=== PATIENT | female | born 1980 | race Caucasian/White ===

== ENCOUNTER 2019-02-06 17:47 | Inpatient (IN) | payer OTHER ==
[~2019-02-06] VITALS: Ht 152.4 cm; Wt 59.4 kg
[~2019-02-06 17:47] MED LIST: CLONIDINE; DEPAKOTE PO; DEPO PROVERA; MIRALAX PO; NEURONTIN; SEROQUEL PO; SERT25TA PO; TEMAZEPAM; TRAZADONE PO; TYLENOL; VANC750S IV; ZOS3.375I IV
[2019-02-06 17:53] VITALS: BP 81/60
--- NOTE | 2019-02-06 18:22 | NUR ---
PT BIB [facility] FROM [facility] FOR FURTHER EVALUATION; STAFF STATED "PT HAS BEEN BITTING HERSELF FOR APPROX 3 HOURS." UPON ARRIVAL PT WAS NOTED CALM, NO INAPPROPRIATE BEHAVIOR WAS OBSERVED. CONNECTED TO MEDICAL DRIVER; VSS. MED HX-CEREBRAL PALSY, PSYCHOSIS AND SEIZURES. SEIZURE PRECAUTIONS INITIATED; BED CLOSE TO NURSES' STATION, PADDED SIDERAILS, BED LOCKED AND IN LOWEST POSITION. ERMD TO EVALUATE PT. ALLERGIES: CODEINE AND MEPERIDINE.
--- NOTE | 2019-02-06 18:38 | NUR ---
DR LU EVALUATING PT AT BEDSIDE.
[2019-02-06] MEDS ORDERED: HAL5 PO (18:58)
[2019-02-06] MEDS ORDERED: SEROQUEL PO (18:58)
[2019-02-06] MEDS ORDERED: ASCO500T45 PO (18:58)
[2019-02-06] MEDS ORDERED: MAG OXIDE PO (18:58)
[2019-02-06] MEDS ORDERED: COLACE PO (18:58)
[2019-02-06] MEDS ORDERED: GABAPENTIN PO (18:58)
[2019-02-06] MEDS ORDERED: METO25TA PO (18:58)
[2019-02-06] MEDS ORDERED: GEODON PO (18:58)
[2019-02-06 19:07] LABS: BASOPHILS % (AUTO) 0.7 % (0.0-2.0); EOSINOPHILS # (AUTO) 0.2 K/uL (0-0.4); EOSINOPHILS % (AUTO) 3.7 % (0.0-4.0); HEMATOCRIT 38.9 % (36-48); HEMOGLOBIN 12.6 g/dL (12.0-16.0); LYMPHOCYTES # (AUTO) 2.6 K/uL (2.5-16.5); MEAN CORPUSCULAR HEMOGLOBIN 34 pg (27-31); MEAN CORPUSCULAR HGB CONC 32 g/dL (33-37); MEAN CORPUSCULAR VOLUME 103.9 fL (80-94); MONOCYTES # (AUTO) 0.7 K/uL (0.8-1.0); MONOCYTES % (AUTO) 11.5 % (1.7-9.3); NEUTROPHILS # (AUTO) 2.8 K/uL (1.8-7.7); NEUTROPHILS % (AUTO) 44.1 % (42.2-75.2); PLATELET COUNT (AUTO) 403 K/uL (140-450); RED BLOOD CELL COUNT(AUTO) 3.75 MIL/uL (4.20-5.40); RED CELL DISTRIBUTION WIDTH 18.1 % (11.6-13.7); WHITE BLOOD COUNT (AUTO) 6.5 K/uL (4.8-10.8)
--- NOTE | 2019-02-06 19:12 | NUR ---
RECEIVED REPORT FROM BARRERA CROW. TRANSFER OF CARE AT THIS TIME.
--- NOTE | 2019-02-06 19:18 | NUR ---
REPORT GIVEN TO BARRERA TATUM. TRANSFER OF CARE AT THIS TIME.
[2019-02-06 19:23] LABS: ANION GAP 14.9 (8-16); CARBON DIOXIDE 25.8 mmol/L (21-32); CHLORIDE 107 mmol/L (98-107); CREATININE 0.9 mg/dL (0.6-1.3); GFR ARICAN-AMERICAN 89 mL/min (>90); GLUCOSE 93 mg/dL (74-106); POTASSIUM 3.7 mmol/L (3.5-5.1); SODIUM SERUM 144 mmol/L (136-145); UREA NITROGEN, BLOOD 23 mg/dL (7-18)
[2019-02-06 19:29] LABS: ASPARTATE AMINOTRANSFERASE 24 U/L (15-37); TOTAL BILIRUBIN 0.5 mg/dL (0.0-1.0)
[2019-02-06 19:41] LABS: ACETAMINOPHEN < 0.5 ug/ml (10-30); SALICYLATE < 2.8 mg/dL (2.8-20.0)
--- NOTE | 2019-02-06 19:45 | NUR ---
# 14 FR straight catheter utilizing sterile technique. Immediate return of 50 ml dark yellow urine noted. Urine sample collected and sent to lab. Pt tolerated procedure well. Addendum: 02/06/19 at 2049 by [employer] PT TOLERATED WELL; NO AGGRESSION OR COMBATIVE BEHAVIOR AT THIS TIME.
--- NOTE | 2019-02-06 20:30 | NUR ---
PT AWAKE, ALERT, SITTING IN BED WITH PADDED SIDE RAILS UP X 2. PT IS CALM; NO AGGRESSION OR COMBATIVE BEHAVIOR AT THIS TIME.
[2019-02-06 21:01] LABS: BARBITURATE, URINE NEG. ng/ml (NEG <=200); BENZODIAZEPINE, URINE NEG. ng/mL (NEG <=200); CANNABINOID, URINE NEG. ng/mL (NEG <=50); COCAINE, URINE NEG. ng/mL (NEG <=300); OPIATE, URINE NEG. ng/mL (NEG <=2000); PHENCYCLIDINE SCREEN,URINE NEG. ng/mL (NEG <=25)
--- NOTE | 2019-02-06 21:30 | NUR ---
PT AWAKE, ALERT, SITTING IN BED WITH PADDED SIDE RAILS UP X 2. PT IS CALM; NO AGGRESSION OR COMBATIVE BEHAVIOR AT THIS TIME.
--- NOTE | 2019-02-06 22:30 | NUR ---
PT AWAKE, ALERT, SITTING IN BED WITH PADDED SIDE RAILS UP X 2. PT IS CALM; NO AGGRESSION OR COMBATIVE BEHAVIOR AT THIS TIME.
--- NOTE | 2019-02-06 22:45 | NUR ---
[facility] TRANSPORT AT BEDSIDE
--- NOTE | 2019-02-06 22:50 | NUR ---
PT BECAME AGGRESSIVE AND COMBATIVE DURING ATTEMPTED TRANSFER TO [facility]. PT STARTED KICKING AND BITING HERSELF. [facility] REFUSED TRANSFER. DR. SLADE NOTIFED. NEW ORDERS RECEIVED.
[2019-02-06] MEDS ORDERED: LORazepam 2 MG/ML VIAL IM/IVP ONE (22:55)
--- NOTE | 2019-02-06 22:58 | NUR ---
ATIVAN 1 MG GIVEN IM TO LEFT DELTOID. WILL CONTINUE TO MONITOR.
[2019-02-06] MEDS ORDERED: HALOPERIDOL IM 5 MG/ML VIAL IM ONE (23:10)
--- NOTE | 2019-02-06 23:10 | NUR ---
PT CONTINUES TO BE COMBATIVE AND AGGRESSIVE. PT IS BITING CLOTHES, KICKING, REMOVING SIDE RAIL PADS AND HITTING HEAD AGAINST MATTRESS. DR. SLADE NOTIFIED. NEW ORDERS RECEIVED.
--- NOTE | 2019-02-06 23:12 | NUR ---
HALDOL 5 MG IM GIVEN TO RIGHT DELTOID.
--- NOTE | 2019-02-06 23:25 | NUR ---
Physician order given to place velcro type restraints to wrists and ankles to prevent self-inflicted injury. Resraints placed with quick-release ties to bed frame. Pt under observation.
[2019-02-06 23:49] LABS: APPEARANCE,URINE CLEAR (CLEAR); BILIRUBIN,URINE NEGATIVE (NEGATIVE); BLOOD, URINE NEGATIVE (NEGATIVE); COLOR,URINE YELLOW (YELLOW); LEUKOCYTE ESTERASE ,URINE NEGATIVE (NEGATIVE); NITRITE, URINE NEGATIVE (NEGATIVE); UGLUCOSE NEGATIVE (NEGATIVE)
[2019-02-07 00:25] LABS: RBC,URINE 0-5 /HPF (0-5); URINE AMORPHOUS URATE 3+ /HPF (None Seen); WBC,URINE 0-5 /HPF (0-5)
--- NOTE | 2019-02-07 00:30 | NUR ---
PT CONTINUES TO BE COMBATIVE. ATTEMPTING TO REMOVE HERSELF FROM RESTRAINTS AND BITE HERSELF. CMS IN TACT TO ALL 4 EXTREMETIES.
[2019-02-07] MEDS ORDERED: DOCUSATE SODIUM 100 MG GELCAP PO PRN (01:05)
[2019-02-07] MEDS ORDERED: ACETAMINOPHEN 325 MG TAB PO PRN (01:05)
[2019-02-07] MEDS ORDERED: ONDANSETRON 4 MG/2 ML VIAL IM/IVP PRN (01:05)
--- NOTE | 2019-02-07 01:30 | NUR ---
PT IS RESTLESS; OCCASIONALLY CRIES OUT AND KICKS. PT IS NO LONGER BITING HERSELF OR HITTING HEAD. RESTRAINTS REMOVED. CMS IN TACT TO ALL 4 EXTREMETIES.
[2019-02-07 01:35] VITALS: BP 117/64
--- NOTE | 2019-02-07 01:35 | NUR ---
PT ARRIVED FROM ED VIA GURNEY, RECEIVED REPORT FROM ED NURSE HARSH RN, PT STABLE, NO DISTRESS NOTED, PT HAS NO IV ACCESS AT THIS MOMENT, PT ON ROOM AIR, NO SOB NOTED, PT DROWSY, NON VERBAL, V/S TAKEN, WNL, PT NOT COOPERATIVE, WOULD NOT MOVE OR TURN, TRANSFERRED PT TO BED, TOLERATED WELL, FLACC 0, INITIAL ASSESSMENT DONE, ALL SAFETY PRECAUTION MET, CALL LIGHT WITHIN REACH, WILL CONTINUE TO MONITOR.
[2019-02-07] MEDS ORDERED: HAL5 PO (01:38)
[2019-02-07] MEDS ORDERED: MIRABULK PO (01:39)
[2019-02-07] MEDS ORDERED: KEP500 PO (01:39)
[2019-02-07] MEDS ORDERED: METO25TA PO (01:39)
[2019-02-07] MEDS ORDERED: GABAPENTIN PO (01:39)
[2019-02-07] MEDS ORDERED: SILV-22 TP (01:39)
[2019-02-07] MEDS ORDERED: GEODON PO (01:39)
[2019-02-07] MEDS ORDERED: SERT25TA PO (01:39)
[2019-02-07] MEDS ORDERED: SEROQUEL PO (01:39)
[2019-02-07] MEDS ORDERED: LEVO0.124 PO (01:39)
--- NOTE | 2019-02-07 01:42 | NUR ---
Patient will be admitted to care of Dr. Cabezas. Admited to MS. Will go to room 110B. Belongings list completed. Report to BARRERA Doran.
[2019-02-07] MEDS ORDERED: LACTULOSE 20 GM/30 ML UDC PO ONE (01:50)
[2019-02-07 01:51] LABS: CHOL/HDL RATIO 5.5 (1-4.5); MAGNESIUM 1.8 mg/dL (1.8-2.4); PHOSPHORUS 3.1 mg/dL (2.5-4.9); THYROID STIMULATING HORMONE 0.07 uIU/mL (0.34-3.74)
--- NOTE | 2019-02-07 02:41 | NUR ---
LACTULOSE ORDERED ADMINISTERED, PT DRANK SOME, BUT SPIT SOME OUT, DR. CUENCA NOTIFIED. PT RESTING, NO DISTRESS NOTED, CALL LIGHT WITHIN REACH, WILL CONTINUE TO MONITOR.
--- NOTE | 2019-02-07 02:58 | NUR ---
IV INSERTED TO R FOOT, 22G PATENT, INTACT, PT TOLERATED WELL. SITTER AT BEDSIDE, WILL CONTINUE TO MONITOR.
[2019-02-07] MEDS: NACL 0.9% 1,000 ML IV SCH ×3 (03:11→22:13)
--- NOTE | 2019-02-07 05:53 | NUR ---
PT SLEEPING, NO DISTRESS NOTED, SITTER AT BEDSIDE.
--- NOTE | 2019-02-07 06:18 | NUR ---
PT WOULD NOT COOPERATE TO DO CHEST XRAY, WOULD NOT LET STAFF TOUCH HER. PT RESTING IN BED, NO DISTRESS NOTED, SITTER AT BEDSIDE.
[2019-02-07] MEDS ORDERED: LEVOTHYROXINE 0.112 MG TAB PO SCH (06:30)
[2019-02-07 06:40] LABS: BASOPHILS # (AUTO) 0.1 K/uL (0.00-0.22); BASOPHILS % (AUTO) 0.8 % (0.0-2.0); EOSINOPHILS # (AUTO) 0.3 K/uL (0-0.4); EOSINOPHILS % (AUTO) 3.6 % (0.0-4.0); HEMATOCRIT 39.5 % (36-48); LYMPHOCYTES # (AUTO) 2.2 K/uL (2.5-16.5); LYMPHOCYTES % (AUTO) 25.6 % (20.5-51.1); MEAN CORPUSCULAR HEMOGLOBIN 34 pg (27-31); MEAN CORPUSCULAR HGB CONC 33 g/dL (33-37); MEAN CORPUSCULAR VOLUME 103.4 fL (80-94); MONOCYTES % (AUTO) 11.6 % (1.7-9.3); NEUTROPHILS # (AUTO) 5.1 K/uL (1.8-7.7); NEUTROPHILS % (AUTO) 58.4 % (42.2-75.2); PLATELET COUNT (AUTO) 410 K/uL (140-450); RED BLOOD CELL COUNT(AUTO) 3.81 MIL/uL (4.20-5.40); RED CELL DISTRIBUTION WIDTH 17.8 % (11.6-13.7); WHITE BLOOD COUNT (AUTO) 8.8 K/uL (4.8-10.8)
--- NOTE | 2019-02-07 07:15 | NUR ---
ENDORSED PT TO DAY SHIFT NURSE ABEL RN, PT STABLE, NO DISTRESS NOTED, SITTER AT BEDSIDE.
--- NOTE | 2019-02-07 07:16 | NUR ---
RECEIVED ENDORSEMENT FROM MODERN AND CONTEMPORARY ART CURATOR NURSE LINK. PATIENT IS ASLEEP, NO DISTRESS NOTED. VISIBLE RISE AND FALL OF CHEST. RESPIRATIONS ARE EVEN AND UNLABORED ON ROOM AIR. RIGHT FOOT 22G IV INTACT, PATENT, AND INFUSING IVF. PLAN OF CARE WILL BE REVIEWED WITH PATIENT ONCE SHE IS AWAKE. SAFETY MEASURES IN PLACE, SITTER AT BEDSIDE.
[2019-02-07 07:25] LABS: PROTHROMBIN TIME 10.3 secs (10.8-13.4)
[2019-02-07 07:53] LABS: MAGNESIUM 1.8 mg/dL (1.8-2.4); PHOSPHORUS 4.1 mg/dL (2.5-4.9)
[2019-02-07 08:00] VITALS: BP 126/61
[2019-02-07] MEDS ORDERED: ZIPRASIDONE 40 MG CAP PO SCH (08:00)
[2019-02-07 08:09] LABS: ANION GAP 12.8 (8-16); CARBON DIOXIDE 27.7 mmol/L (21-32); POTASSIUM 3.5 mmol/L (3.5-5.1)
[2019-02-07 08:10] LABS: CREATININE 0.8 mg/dL (0.6-1.3)
[2019-02-07] MEDS: levETIRAcetam 500 MG TAB PO SCH ×2 (08:41→21:00)
[2019-02-07] MEDS: QUEtiapine FUMARATE 100 MG TAB PO SCH ×2 (08:43→21:00)
[2019-02-07] MEDS: MAGNESIUM OXIDE 400 MG TAB PO SCH (08:43)
[2019-02-07] MEDS: DOCUSATE SODIUM 250 MG GELCAP PO SCH (08:43)
[2019-02-07] MEDS: DIVALPROEX 500 MG TABEC PO SCH ×2 (08:44→21:00)
[2019-02-07] MEDS: HALOPERIDOL 5 MG TAB PO SCH ×2 (08:44→21:00)
[2019-02-07] MEDS: GABAPENTIN 100 MG CAP PO SCH ×3 (08:45→17:00)
[2019-02-07] MEDS: SERTRALINE 50 MG TAB PO SCH (08:45)
--- NOTE | 2019-02-07 08:58 | NUR ---
PATIENT HAS BEEN SCREENED AND CATEGORIZED HIGH NUTRITION RISK. PATIENT WILL BE SEEN WITHIN 1-2 DAYS OF ADMISSION. 02/07/19-02/08/[address]
[2019-02-07] MEDS ORDERED: GEODON 20 MG PO SCH (09:00)
[2019-02-07] MEDS: METOPROLOL 25 MG TAB PO SCH ×2 (09:00→21:00)
[2019-02-07] MEDS ORDERED: DEPAKOTE 500 MG PO SCH (09:00)
[2019-02-07] MEDS ORDERED: SILVER SULFADIAZINE TP SCH (09:00)
[2019-02-07] MEDS ORDERED: MAGNESIUM OXIDE 400 MG PO SCH (09:00)
[2019-02-07] MEDS ORDERED: SEROQUEL 400 MG PO SCH (09:00)
[2019-02-07] MEDS ORDERED: NON-FORMULARY ITEM (Levothyroxine Sodium* (Synthroid*) 0.125 MG) PO SCH (09:00)
[2019-02-07] MEDS ORDERED: GABAPENTIN 100 MG PO SCH (09:00)
[2019-02-07] MEDS ORDERED: COLACE PO SCH (09:00)
[2019-02-07] MEDS: POLYETHYLENE GLYCOL 17 GM/PKT PO SCH (09:06)
--- NOTE | 2019-02-07 09:07 | NUR ---
BLOOD PRESSURE MEDICATION NOT GIVEN. PATIENTS BP IS 126/61 WITH HR OF 87. WILL MAKE DR. COLLINS AWARE. PATIENTS CAREGIVER AT BEDSIDE. CAREGIVER STATED THAT PATIENTS PRIMARY DOCTOR, DR. MILNER, WISHES TO SPEAK WITH . CAREGIVER ALSO STATED THAT DR. MILNER REQUESTED PICTURES OF WOUND. DR. VALERIA MILNER NUMBER IS . PER CHARGE NURSE, GREGORIO, OK TO TAKE PICTURES. NO OTHER NEEDS AT THIS TIME, WILL CONTINUE TO MONITOR. Addendum: 02/07/19 at 1008 by Brittanie Damon RN SCHEDULED MEDICATIONS ADMINISTERED WITH APPLE SAUCE. PATIENT ABLE TO SWALLOW WITH NO DIFFICULTY. PATIENT TOLERATED WELL.
[2019-02-07] MEDS: LORazepam 2 MG/ML VIAL IM/IVP PRN ×2 (09:34→23:56)
--- NOTE | 2019-02-07 09:35 | NUR ---
PATIENT OBSERVED BANGING HER HEAD ON RAILS AND HEAD BOARD. PATIENT ALSO BITING STUFFED ANIMAL AND BED SHEETS. ADMINISTERED PRN ATIVAN IVP. PATIENT CALMED DOWN AND IS NOW RESTING IN BED. NO OTHER NEEDS AT THIS TIME, WILL CONTINUE TO MONITOR.
--- NOTE | 2019-02-07 10:20 | NUR ---
WOUND CARE EVALUATION: PT. IS NON-VERBAL, IN BED TURNING SIDE TO SIDE AND IN POSITION, PT. NOT COOPERATE WITH HEAD TO TOE SKIN ASSESSMENT, ONLY ABLE TO ASSESS RLL QUICKLY BEFORE PT. BECOME TOO RESTLESS. IV TO RIGHT DORSAL FOOT WITH KERLIX ROLL IN PLACE RIGHT FOOT HALLUX, 2ND AND 3RD DIGIT TOES WITH MULTIPLE ABRASIONS WITH LARGEST TO RIGHT HALLUX 1X1.5CM ,HALLUX LOOSE TOE NAIL IN PLACE, RIGHT LOWER JIANG DRY THIN BROWN SCAB 3X2CM. RECOMMENDATION: -PAINT RIGHT LOWER LEG, RIGHT HALLUX, 2ND AND 3RD DIGIT TOES WITH BETADINE SOLUTION BID AND LEAVE IT OPEN TO AIR -ASSESS AND MONITOR SKIN CONDITION DURING LORNE CARE -OFFLOAD BILATERAL HEELS BY PLACING PILLOWS UNDER CALVES AT ALL TIMES, UNLESS OTHERWISE CONTRAINDICATED -PRESSURE REDISTRIBUTION BY PLACING PILLOWS -KEEP SKIN CLEAN AND DRY AT ALL TIMES. Addendum: 02/09/19 at 0904 by Hayden Glasgow RN (Grace) SCREEN FOR LOW IDONY SCALE AT RISK, PRESSURE INJURY PREVENTION INTERVENTIONS IN PLACE. -TURN AND REPOSITION PATIENT Q 2H -ASSESS AND MONITOR SKIN CONDITION DURING POSITION CHANGE -OFFLOAD BILATERAL HEELS BY PLACING PILLOWS UNDER CALVES AT ALL TIMES, UNLESS OTHERWISE CONTRAINDICATED -PRESSURE REDISTRIBUTION BY PLACING PILLOWS -KEEP SKIN CLEAN AND DRY AT ALL TIMES.
--- NOTE | 2019-02-07 11:28 | NUR ---
PATIENT REPEATEDLY YANKS ON IV LINE, PULLS OFF CONNECTOR. BLOOD FOUND ON SHEET. IV STILL PATENT AND INTACT AND IS SALINE LOCK FOR NOW.
[2019-02-07] MEDS ORDERED: ZIPRASIDONE 20 MG CAP PO SCH (11:36)
--- NOTE | 2019-02-07 13:31 | NUR ---
PATIENT SLEEPING. VISIBLE RISE AND FALL OF CHEST. PER SWALLOW EVALUATION: KEEP PATIENT NPO UNTIL ABLE TO ASSESS. PATIENT OPENS EYES AND MOVES AROUND BUT REFUSES TO WAKE UP TO TAKE MEDICATION. Addendum: 02/07/19 at 1335 by Brittanie Damon RN RESUMED IVF. FLACC 0. NO OTHER NEEDS AT THIS TIME, WILL CONTINUE TO MONITOR.
--- NOTE | 2019-02-07 14:25 | NUR ---
S.T. BEDSIDE SWALLOW EVAL COMPLETED Pt presents with profound oropharyngeal dysphagia c/b inability to procure and manage oral bolus of single ice chip, anterior spillage and no observed attempts to initiate pharyngeal swallow. Pt is currently at high risk for aspiration. This appears likely due in large part to somnolence from Ativan given earlier today. Recommend: 1) NPO w/ non-oral means of nutrition, hydration and meds. 2) Reassess for swallow tomorrow. D/w pt and RN Brittanie results/recommendations. TIME [id number]
--- NOTE | 2019-02-07 15:16 | NUR ---
02/07/19 RD INITIAL ASSESSMENT COMPLETED PLEASE REFER TO NUTRITION ASSESSMENT UNDER CARE ACTIVITY FOR ESTIMATED NUTRITIONAL NEEDS. 1. RECOMMEND NPO DUE TO HIGH RISK ASPIRATION PER SPEECH THERAPIST 2. IF PATIENT DOES NOT PASS SWALLOW EVALUATION TOMORROW CONSIDER ENTERAL NUTRITION WITH JEVITY @ 45 ML/HR X 24 HOURS -THIS WILL PROVIDE 1080 ML, 1295 KCAL, AND [address] TO FOLLOW-UP 2-3 DAYS, HIGH RISK ELYSE DELATORRE RD
[2019-02-07 16:00] VITALS: BP 117/78
[2019-02-07] MEDS: ZIPRASIDONE 20 MG CAP PO SCH (17:00)
--- NOTE | 2019-02-07 17:33 | NUR ---
MEDICATIONS NOT ADMINISTERED. PATIENT REFUSES TO WAKE UP. VISIBLE RISE AND FALL OF CHEST. NO OTHER NEEDS AT THSI TIME. WILL CONTINUE TO MONITOR. Addendum: 02/07/19 at 1744 by Brittanie Damon RN *THIS. DR. SPANN WAS MADE AWARE. PER DR. SPANN DO NOT GIVE PO MEDS AT THIS TIME.
[2019-02-07] MEDS ORDERED: ZIPRASIDONE MESYLATE 20 MG/ML VIAL IM SCH (18:00)
--- NOTE | 2019-02-07 18:45 | NUR ---
PATIENT PULLED OUT IV. ATTEMPTED TO INSERT NEW IV BUT PATIENT REFUSED.
--- NOTE | 2019-02-07 19:28 | NUR ---
ENDORSED TO FOREIGN SERVICE TEACHER NURSE MYNOR FOR CONTINUITY OF CARE. PATIENT IS STABLE AT THIS TIME.
--- NOTE | 2019-02-07 19:29 | NUR ---
RECEIVED REPORT FROM AM NURSE. PT SLEEPING AT THIS TIME. VISIBLE CHEST RISE AND FALL ON ROOM AIR, NO NOTED DISTRESS. RIGHT FOOT IV 22G INTACT AND INFUSING WELL. SITTER AT BEDSIDE. SAFETY MEASURES IN PLACE. WILL CONTINUE TO MONITOR.
--- NOTE | 2019-02-07 22:02 | NUR ---
PT AWAKE, NON-VERBAL. FLACC 0. UNABLE TO ADMINISTER ORAL MEDICATION DUR TO RESULTS OF SWALLOWING EVAL. INFORMED RESIDENT .
[2019-02-07] MEDS ORDERED: VALPROATE SODIUM 500 MG in NACL 0.9% 100 ML IV SCH (22:30)
[2019-02-07] MEDS ORDERED: levETIRAcetam 500 MG in NACL 0.9% 100 ML IV SCH (23:00)
[2019-02-07] MEDS ORDERED: levETIRAcetam 100 MG/ML VIAL IV ONE (23:19)
[2019-02-07] MEDS ORDERED: VALPROATE SODIUM 500 MG/5 ML VIAL IV ONE (23:19)
--- NOTE | 2019-02-07 23:57 | NUR ---
. PT HITTING HEAD ON BED, BITING AT SHEETS AND PULLING AT IV TUBING. ATIVAN GIVEN FOR ANXIETY.
[2019-02-08 00:30] VITALS: BP 116/76
--- NOTE | 2019-02-08 00:30 | NUR ---
PT PULLED RIGHT FOOT AND SNAPPED IV TUBING FROM IV SITE. IV INTACT IN RIGHT FOOT. NEW TUBING CONNECTED BUT IV OCCLUDED. NEW ACCESS STARTED ON LEFT FOOT 22G.
--- NOTE | 2019-02-08 02:30 | NUR ---
ROUNDED ON PT. PT LAYING IN POSITION PLAYING WITH TOY QUIETLY IN BED. NO VISIBLE SIGNS OF DISTRESS. SITTER AT BEDSIDE. SEIZURE PRECAUTIONS IN PLACE. WILL CONTINUE TO MONITOR.
--- NOTE | 2019-02-08 04:15 | NUR ---
CHECKED ON PT. PT SLEEPING IN POSITION IN BED. BREATHING EQUAL AND UNLABORED. SITTER AT BEDSIDE.
[2019-02-08] MEDS ORDERED: Z-GUARD PASTE TP ONE (05:16)
[2019-02-08] MEDS: LEVOTHYROXINE 0.075 MG TAB PO SCH (05:51)
[2019-02-08] MEDS: DEXT 5% /NACL 0.9% 1,000 ML IV SCH ×2 (06:25→16:44)
--- NOTE | 2019-02-08 06:51 | NUR ---
PT ACCIDENTALLY D/C IV IN LEFT FOOT, CANNULA INTACT. PT SITTING UP IN BED PLAYING WITH PILLOW, FLACC 0. PT IS CALM AND COOPERATIVE WITH STAFF. WILL ENDORSE TO DAY SHIFT.
--- NOTE | 2019-02-08 07:15 | NUR ---
RECEIVED BEDSIDE REPORT FROM MEDICAID ELIGIBILITY SPECIALIST NURSE, PT IS AWAKE, SITTING UP IN BED AND MOVING AROUND. PT APPEARS CONFUSED, AND IS NONVERBAL. BEDSIDE RAILS ARE PADDED FOR SEIZURE PRECAUTION. PT KEEPS REMOVING LINENS AND GOWN. PT DOES NOT HAVE IV SITE, ACCORDING TO NIGHT NURSE THE IV CAME OUT. FALL PRECAUTIONS ARE IN PLACE. CONTINUING TO MONITOR PT 1:1
[2019-02-08 08:00] VITALS: BP 114/63
[2019-02-08] MEDS: ZIPRASIDONE 20 MG CAP PO SCH ×2 (08:00→16:39)
--- NOTE | 2019-02-08 08:30 | NUR ---
PT CLEANED AND CHANGED, BED LINENS CHANGED.
--- NOTE | 2019-02-08 08:44 | NUR ---
NEW IV INSERTED INTO THE R FOOT, 22 GAUGE. PATENT AND INTACT. FOOT WRAPPED AND TAPED FOR SAFETY.
[2019-02-08] MEDS: METOPROLOL 25 MG TAB PO SCH ×2 (09:00→20:04)
[2019-02-08] MEDS: QUEtiapine FUMARATE 100 MG TAB PO SCH ×2 (09:00→20:09)
[2019-02-08] MEDS: DOCUSATE SODIUM 250 MG GELCAP PO SCH (09:00)
[2019-02-08] MEDS: POLYETHYLENE GLYCOL 17 GM/PKT PO SCH (09:00)
[2019-02-08] MEDS ORDERED: VALPROATE SODIUM 500 MG in NACL 0.9% 100 ML IV SCH (09:00)
[2019-02-08] MEDS: MAGNESIUM OXIDE 400 MG TAB PO SCH (09:00)
[2019-02-08] MEDS: HALOPERIDOL 5 MG TAB PO SCH ×2 (09:00→20:04)
[2019-02-08] MEDS: SERTRALINE 50 MG TAB PO SCH (09:00)
[2019-02-08] MEDS: GABAPENTIN 100 MG CAP PO SCH ×3 (09:00→16:38)
[2019-02-08] MEDS ORDERED: levETIRAcetam 500 MG in NACL 0.9% 100 ML IV SCH (09:00)
--- NOTE | 2019-02-08 09:40 | NUR ---
PT'S B&C CABLE INSTALLER REPAIRER HELPER SREE HERE, VISITING WITH PT AT BEDSIDE. PT IS SITTING UP IN THE BED.
--- NOTE | 2019-02-08 10:10 | NUR ---
PT KEEPS PULLING ON HER IV, DISCONNECTED THE LINE AND BLED OVER HER LINENS, AND KEEPS TRYING TO CRAWL OUT OF BED. BASED ON CHEMICAL LABORATORY TESTER, MD NOTIFIED AND WILL ORDER SOFT WRIST RESTRAINTS.
--- NOTE | 2019-02-08 10:23 | NUR ---
SPEECH THERAPIST HERE DOING A SWALLOW EVAL, PT APPEARS TO BE ABLE TO SWALLOW PUREED CONSISTENCY FOOD (APPLE SAUCE) AND DRINK THIN LIQUIDS WITHOUT ISSUES.
--- NOTE | 2019-02-08 10:53 | NUR ---
S.T. TREATMENT NOTE S: Pt seen at bedside w/ BARRERA Quintana applying B soft wrist restraints. Pt awake, alert. Nonverbal but agreeable to P.O. trials. O: Pt given P.O. trials of puree (applesauce 4 oz.) and thin liquids via straw (4 oz) as well as 5cc bolus of nectar thick liquids by straw. A: Pt demonstrates moderate oropharyngeal swallow difficulty characterized by prolonged oral prep and delayed pharyngeal swallow initiation resulting in cough x1 w/ thin liquids via straw. 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 P: Recommend advance to pureed diet, thin liquids ok in small, controlled straw sips. P.O. meds crushed and mixed w/ puree such as pudding. No further tx indicated at this time as pt is functioning at her baseline level per SNF records. DC to [facility] at this time. Endorsed to BARRERA Quintana. Time [id number]
--- NOTE | 2019-02-08 11:03 | NUR ---
CALLED [facility] [phone] SPOKE WITH KIM MCKEON DISCUSSED THE D/C PLAN FROM THE DR THAT PATIENT CAN GO TO [facility]. PER KIM PT WAS WELL KNOWN TO HIM AND WILLING TO TAKE HER BACK. CALLED [facility] NOREEN BATRES [phone] LEFT A MESSAGE.
--- NOTE | 2019-02-08 11:52 | NUR ---
PT APPEARS TO BE MORE RESTLESS AND AGITATED WITH THE RESTRAINTS. RESTRAINTS REMOVED AT THIS TIME, CONTINUING TO MONITOR.
--- NOTE | 2019-02-08 12:32 | NUR ---
ASSISTING PT WITH EATING HER LUNCH, SHE ATE ABOUT 80% OF THE TRAY. NO S/S OF DYSPHAGIA NOTED.
--- NOTE | 2019-02-08 13:20 | NUR ---
PT MOVED TO BED 110-A
--- NOTE | 2019-02-08 15:10 | NUR ---
PT IS ASLEEP. NO S/S OF ANY ACUTE DISTRESS SEEN. CONTINUING TO MONITOR 1:1
[2019-02-08 16:00] VITALS: BP 104/56
--- NOTE | 2019-02-08 16:03 | NUR ---
PT HAD A LARGE BM. PT CLEANED AND CHANGED, LINENS CHANGED.
--- NOTE | 2019-02-08 18:18 | NUR ---
PT ATE 85% OF DINNER TRAY, WITH ASSISTANCE FROM RN.
--- NOTE | 2019-02-08 19:15 | NUR ---
PT ENDORSED TO MEAT MANAGER NURSE IS STABLE CONDITION.
--- NOTE | 2019-02-08 19:16 | NUR ---
RECEIVED BEDSIDE REPORT FROM DAY SHIFT RN. PT IS AWAKE AND MOVING AROUND IN BED GRABBING AND THROWING GOWN AND SHEETS IN BED. PT IS NON VERBAL. C/C COMBATIVE BEHAVIOR AND HURTING SELF SUCH HITTING HEAD AND BITTING TONGUE PER NURSE. PMH CP, MENTAL DELAYED. SKIN INTACT PER RN BUT HAS A HEALING ULCER ON R JIANG. IV ON R FOOT 22G SL AT THIS TIME WITH ORDER FOR D5NS BUT PT KEEPS TRYING TO REMOVE IV LINE MD AWARE. PT IS AAOX0. SWALLOW EVAL TODAY PT NOW ON PUREE DIET. PT IS FEEDER AND INCONTINENT. PLAN OF CARE DISCUSSED. BED ALARM ON AND ON LOWEST POSITION. PT WITH 1:1 SITTER. WILL CONTINUE TO MONITOR.
[2019-02-08] MEDS: levETIRAcetam 500 MG TAB PO SCH (20:03)
[2019-02-08] MEDS: DIVALPROEX 250 MG TABEC PO SCH (20:04)
--- NOTE | 2019-02-08 20:19 | NUR ---
SCHEULED MEDICATIONS WERE CRUSHED AND GIVEN PER ORDERS. PT TOLERATED WELL. NO S/S OF DISTRESS. CALL LIGHT IS WITHIN REACH. WILL CONTINUE TO MONITOR.
[2019-02-08] MEDS ORDERED: DIVALPROEX 250 MG TABEC PO SCH (21:00)
--- NOTE | 2019-02-08 21:04 | NUR ---
PATIENT IS RESTING IN BED. HAS NOT HAD RESTRAINTS DURING MY SHIFT. PT JUST PLAYING WITH BED SHEET AND GOWN. BUT ONCE IV LINE IS CONNECTED PT ATTEMPT TO PULL IT OUT. CURRENTLY SL BUT HAS ORDERS FOR IVF. WILL CONTINUE TO MONITOR. 1:1 SITTER
--- NOTE | 2019-02-08 22:06 | NUR ---
PATIENT WAS CLEANED WITH SOAP AND WATER HAD ONE LARGE BM. REPOSITION FOR COMFORT. ALL NEEDS MET AT THIS TIME. 1:1 SITTER.
[2019-02-08 23:21] VITALS: BP 119/74
--- NOTE | 2019-02-08 23:22 | NUR ---
VITAL SIGNS ARE WITHIN NORMAL LIMITS. NO S/S OF DISTRESS. SAFETY MEASURES ARE IN PLACE. 1:1 SITTER.
--- NOTE | 2019-02-09 01:23 | NUR ---
PATIENT IS SLEEPING COMFORTABLY IN BED. CHEST RISE AND FALL. NO S/S OF DISTRESS. WILL CONTINUE TO MONITOR 1:1
--- NOTE | 2019-02-09 03:30 | NUR ---
PATIENT IS SLEEPING COMFORTABLY IN BED. NO S/S OF DISTRESS. WILL CONTINUE TO MONITOR 1:1.
[2019-02-09] MEDS: LORazepam 2 MG/ML VIAL IM/IVP PRN ×2 (06:09→21:43)
--- NOTE | 2019-02-09 06:09 | NUR ---
PATIENT BEGAN BITTING CLOTHES OFF AND HITTING SELF ON HEAD AND SCREAMING. PT TRIED TO GET OUT OF BED. ADMINISTERED ATIVAN AND CALLED SECURITY. CLEANED AND PUT GOWN BACK ON. SOFT RESTRAINTS APPLIED. WILL CONTINUE TO MONITOR 1:1.
[2019-02-09] MEDS: LEVOTHYROXINE 0.075 MG TAB PO SCH (06:30)
--- NOTE | 2019-02-09 06:45 | NUR ---
PATIENT REMOVED SOFT WRIST RESTRAINT AND STARTING BITING HAND. SPOKE WITH DR ORTEGA WILL PUT IN NEW ORDER TO HELP RELAX PATIENT. PT CONTINUE WITH 1:1 SITTER.
--- NOTE | 2019-02-09 07:30 | NUR ---
GAVE BEDSIDE REPORT TO DAY SHIFT RN. PT IN STABLE CONDITION.
[2019-02-09 07:31] LABS: ANION GAP 13.2 (8-16); CARBON DIOXIDE 26.5 mmol/L (21-32); CREATININE 0.7 mg/dL (0.6-1.3); POTASSIUM 3.7 mmol/L (3.5-5.1)
--- NOTE | 2019-02-09 07:32 | NUR ---
RECEIVED REPORT FROM MEDIA RELATIONS DIRECTOR NURSE. PT ALERT AND AWAKE IN BED, NONVERBAL. RESPIRATIONS EVEN AND UNLABORED ON RA. IV ON RT FOOT 22 GA ON SALINE LOCK. NOTED SELF-INFLICTED BITE DAVEY TO UPPER ARMS, SKIN WARM TO TOUCH. EXPLAINED POC WITH PT, PT VERBALIZED UNDERSTANDING.
[2019-02-09 07:33] LABS: BASOPHILS # (AUTO) 0.1 K/uL (0.00-0.22); BASOPHILS % (AUTO) 1.1 % (0.0-2.0); EOSINOPHILS # (AUTO) 0.3 K/uL (0-0.4); EOSINOPHILS % (AUTO) 5.5 % (0.0-4.0); HEMATOCRIT 35.7 % (36-48); HEMOGLOBIN 11.9 g/dL (12.0-16.0); LYMPHOCYTES # (AUTO) 2.7 K/uL (2.5-16.5); LYMPHOCYTES % (AUTO) 44.5 % (20.5-51.1); MEAN CORPUSCULAR HEMOGLOBIN 34 pg (27-31); MEAN CORPUSCULAR HGB CONC 33 g/dL (33-37); MEAN CORPUSCULAR VOLUME 102.7 fL (80-94); MONOCYTES # (AUTO) 0.5 K/uL (0.8-1.0); MONOCYTES % (AUTO) 8.7 % (1.7-9.3); NEUTROPHILS # (AUTO) 2.4 K/uL (1.8-7.7); NEUTROPHILS % (AUTO) 40.2 % (42.2-75.2); PLATELET COUNT (AUTO) 347 K/uL (140-450); RED BLOOD CELL COUNT(AUTO) 3.48 MIL/uL (4.20-5.40); RED CELL DISTRIBUTION WIDTH 17.5 % (11.6-13.7)
[2019-02-09 07:40] LABS: MAGNESIUM 1.5 mg/dL (1.8-2.4); PHOSPHORUS 3.5 mg/dL (2.5-4.9)
[2019-02-09 08:00] VITALS: BP 126/75
[2019-02-09] MEDS: ZIPRASIDONE 20 MG CAP PO SCH ×3 (08:00→17:34)
[2019-02-09] MEDS ORDERED: HALOPERIDOL IM 5 MG/ML VIAL IM SCH (08:00)
--- NOTE | 2019-02-09 08:03 | NUR ---
PT REMOVED RESTRAINTS THREE TIMES SINCE 0700. GIVEN HALDOL IM PER ORDER.
[2019-02-09] MEDS: DOCUSATE SODIUM 250 MG GELCAP PO SCH ×2 (09:00→09:48)
[2019-02-09] MEDS: SERTRALINE 50 MG TAB PO SCH ×2 (09:00→09:49)
[2019-02-09] MEDS: QUEtiapine FUMARATE 100 MG TAB PO SCH ×3 (09:00→20:32)
[2019-02-09] MEDS: POLYETHYLENE GLYCOL 17 GM/PKT PO SCH ×2 (09:00→09:49)
[2019-02-09] MEDS: levETIRAcetam 500 MG TAB PO SCH ×3 (09:00→20:33)
[2019-02-09] MEDS: GABAPENTIN 100 MG CAP PO SCH ×4 (09:00→17:34)
[2019-02-09] MEDS: METOPROLOL 25 MG TAB PO SCH ×3 (09:00→20:33)
[2019-02-09] MEDS: HALOPERIDOL 5 MG TAB PO SCH ×3 (09:00→20:32)
[2019-02-09] MEDS: DIVALPROEX 250 MG TABEC PO SCH ×3 (09:00→20:33)
[2019-02-09] MEDS: MAGNESIUM OXIDE 400 MG TAB PO SCH ×2 (09:00→09:49)
--- NOTE | 2019-02-09 09:03 | NUR ---
PT IS ASLEEP IN BED, NO SIGNS OF DISTRESS OR DISCOMFORT. WILL CONTINUE TO MONITOR.
[2019-02-09] MEDS: DEXT 5% /NACL 0.9% 1,000 ML IV SCH ×2 (09:35→21:43)
--- NOTE | 2019-02-09 09:48 | NUR ---
RESPIRATIONS EVEN AND UNLABORED ON RA. PT IS AROUSABLE BY SHAKING. HELD ORAL MEDICATIONS AT THIS TIME UNSAFE TO ADMINISTER D/T DYSPHAGIA.
--- NOTE | 2019-02-09 10:44 | NUR ---
RECEIVED A CALL FROM NOREEN BATRES [facility] REGARDING THE TRANSFER TO PSYCH FACILITY PER NOREEN PT WON'T BE STABLE IF SHE GOES TO PSYCH FACILITY HER BEHAVIOR IS THE SAME AND SHE WILL BE OK IF SHE GOES TO THE SAME [facility] ,WITH KIM CHAMBERS. CALLED DR LANDAVERDE AND DISCUSSED THE SITUATION AND CONDITION DR PURVIS AGREED AND CLEAR HER FROM HOLD .
[2019-02-09] MEDS ORDERED: MAG SULF 2000 MG/WATER PREMIX 50 ML IV ONE (11:40)
--- NOTE | 2019-02-09 12:30 | NUR ---
PT AROUSABLE BY SHAKING, HELD NEURONTIN AT THIS TIME, UNSAFE TO GIVE D/T DYSPHAGIA.
--- NOTE | 2019-02-09 14:30 | NUR ---
02/09/19 RD FOLLOW UP COMPLETED PLEASE REFER TO NUTRITION ASSESSMENT UNDER CARE ACTIVITY FOR ESTIMATED NUTRITIONAL NEEDS. 1. CONTINUE WITH PUREE DIET AND NECTAR THICK LIQUIDS TOLERATED 2. CONTINUE FEEDING ASSISTANCE FOR EACH MEAL 3. IF PO INTAKE FALLS <50% RECOMMEND ENSURE BID WITH HONEY THICKENED CONSISTENCY 4. RD TO FOLLOW-UP 3-5 DAYS, MODERATE RISK ELYSE DELATORRE, RD
[2019-02-09 16:00] VITALS: BP 114/63
--- NOTE | 2019-02-09 19:10 | NUR ---
ENDORSED PT TO ADMINISTRATIVE PROFESSIONAL NURSE. NO SIGNS OF DISTRESS NOTED AT THIS TIME.
--- NOTE | 2019-02-09 20:33 | NUR ---
ADMINISTERED CRUSH MEDICATION WITH APPLE SAUCE. PT TOLERATED WELL. NO S/S OF DISTRESS. 1:1 SITTER
--- NOTE | 2019-02-09 21:43 | NUR ---
PATIENT IS RESTLESS TRYING TO GET OUT OF BED. ADMINISTERED ATIVAN. 1:1 SITTER. WILL CONTINUE TO MONITOR
--- NOTE | 2019-02-09 22:30 | NUR ---
PATIENT IS SLEEPING COMFORTABLY IN BED. CHEST RISE AND FALL. HAS 1:1 SITTER. WILL CONTINUE TO MONITOR.
[2019-02-09 23:37] VITALS: BP 116/83
--- NOTE | 2019-02-09 23:40 | NUR ---
VITAL SIGNS ARE WITHIN NORMAL LIMITS. NO S/S OF DISTRESS. HAS 1:1 SITTER. WILL CONTINUE TO MONITOR.
--- NOTE | 2019-02-10 02:30 | NUR ---
PATIENT IS ASLEEP. CHEST RISE AND FALL. 1:1 SITTER. WILL CONTINUE TO MONITOR.
[2019-02-10] MEDS: LORazepam 2 MG/ML VIAL IM/IVP PRN ×2 (04:29→11:27)
--- NOTE | 2019-02-10 04:29 | NUR ---
PATIENT WOKE UP RESTLESS SCREAMING AND TRYING TO HIT HEAD AND BITE HANDS. ADMINISTERED ATIVAN. 1:1 SITTER WILL CONTINUE TO MONITOR.
--- NOTE | 2019-02-10 05:04 | NUR ---
HALDOL IM GIVEN PATIENT NO S/S OF DISTRESS. PT TOLERATED WELL. 1:1 SITTER. WILL CONTINUE TO MONITOR.
[2019-02-10] MEDS ORDERED: HALOPERIDOL IM 5 MG/ML VIAL IM SCH ×2 (05:15→12:00)
[2019-02-10] MEDS: LEVOTHYROXINE 0.075 MG TAB PO SCH (06:16)
--- NOTE | 2019-02-10 06:17 | NUR ---
PATIENT IS RESTING COMFORTABLY IN BED SLEEPING. CHEST RISE AND FALL. SAFETY MEASURES ARE IN PLACE. 1:1 SITTER.
--- NOTE | 2019-02-10 07:00 | NUR ---
RECEIVED REPORT FROM INTERVENTIONAL PAIN PHYSICIAN NURSE. PT ASLEEP IN BED, AROUSABLE TO SHAKING, NONVERBAL. RESPIRATIONS EVEN AND UNLABORED ON RA. IV ON RT FOOT 22 GA RUNNING IVF PER ORDER. NOTED SELF-INFLICTED BITE DAVEY TO UPPER ARMS, WOUND DRESSING CLEAN, DRY AND INTACT TO RT FOOT, SKIN WARM TO TOUCH. EXPLAINED POC WITH PT, PT NONVERBAL.
[2019-02-10 08:00] VITALS: BP 97/57
[2019-02-10] MEDS ORDERED: MAGNESIUM OXIDE 400 MG TAB PO ONE (08:00)
[2019-02-10] MEDS: METOPROLOL 25 MG TAB PO SCH ×2 (09:00→21:00)
--- NOTE | 2019-02-10 09:00 | NUR ---
LINE RIDER FROM [facility] AT BEDSIDE. GIVEN UPDATE TO PT'S POC.
--- NOTE | 2019-02-10 09:45 | NUR ---
PER DR. CUENCA, HOLD MEDICATIONS NOW AND GIVE WHEN PT IS MORE AWAKE AND GIVE ORAL MEDICATIONS.
[2019-02-10] MEDS: SERTRALINE 50 MG TAB PO SCH (10:29)
[2019-02-10] MEDS: GABAPENTIN 100 MG CAP PO SCH ×3 (10:29→17:00)
[2019-02-10] MEDS: HALOPERIDOL 5 MG TAB PO SCH ×3 (10:30→22:51)
[2019-02-10] MEDS: levETIRAcetam 500 MG TAB PO SCH ×2 (10:30→21:00)
[2019-02-10] MEDS: QUEtiapine FUMARATE 100 MG TAB PO SCH ×3 (10:31→22:49)
[2019-02-10] MEDS: DOCUSATE SODIUM 250 MG GELCAP PO SCH (10:31)
[2019-02-10] MEDS: DIVALPROEX 250 MG TABEC PO SCH ×3 (10:31→22:50)
[2019-02-10] MEDS: POLYETHYLENE GLYCOL 17 GM/PKT PO SCH (10:32)
[2019-02-10] MEDS: ZIPRASIDONE 20 MG CAP PO SCH ×2 (10:32→17:00)
--- NOTE | 2019-02-10 11:27 | NUR ---
PT AWAKE, YELLING AT STAFF AND TRYING TO GET OUT OF BED. GIVEN IM ATIVAN PER ORDER. WILL MONITOR WITHIN 1 HR.
--- NOTE | 2019-02-10 12:00 | NUR ---
PT CONTINUES TO ATTEMPT TO GET OUT OF BED AND BITE SELF. GIVEN IM HALDOL PER ORDER.
--- NOTE | 2019-02-10 12:15 | NUR ---
RECEIVED REPORT FROM RN FOR CONTINUITY OF CARE. PATIENT LYING DOWN IN BED SLEEPING, AROUSABLE BY VOICE AND TOUCH. SITTER AT BEDSIDE. WILL CONTINUE TO MONITOR.
--- NOTE | 2019-02-10 12:15 | NUR ---
ENDORSED PT TO BARRERA MITCHELL. PT HAS NO SIGNS OF DISTRESS AT THIS TIME. SLEEPING IN BED, RESPIRATIONS EVEN AND UNLABORED ON RA.
[2019-02-10 16:00] VITALS: BP 102/86
--- NOTE | 2019-02-10 17:00 | NUR ---
PATIENT SLEEPING, AROUSABLE BY SHAKING. NO DISTRESS NOTED. REFUSES TO TAKE SCHEDULED MEDICATIONS AT THIS TIME. WANTS TO SLEEP. WILL TRY AGAIN LATER.
--- NOTE | 2019-02-10 18:09 | NUR ---
PATIENT LYING DOWN IN BED SLEEPING, AROUSABLE BY SHAKING. PATIENT REFUSED TO TAKE SCHEDULED 1700 MEDICATIONS AND JUST WANTS TO CONTINUE SLEEPING. WILL CONTINUE TO MONITOR.
--- NOTE | 2019-02-10 19:25 | NUR ---
GAVE REPORT TO VACUUM CASTER NURSE FOR CONTINUITY OF CARE. PATIENT IN STABLE CONDITION.
--- NOTE | 2019-02-10 19:26 | NUR ---
RECD. SLEEPING IN BED, AROUSABLE TO SHAKING. IV SALINE LOCK AT THE RIGHT FOOT G22, COVERED WITH KERLIX DRESSING. RESPIRATION EVEN AND UNLABORED, ON ROOM AIR. SAFETY MEASURES ENFORCED, BED ON LOWEST POSITION, SIDE RAILS WITH PADS FOR SEIZURE PRECAUTION. NO APPEARANCE OF PAIN NOTED. WILL CONTINUE TO MONITOR FOR SAFETY AND COMBATIVE BEHAVIOR, WITH 1:1 SITTER.
[2019-02-10 20:00] VITALS: BP 113/59
--- NOTE | 2019-02-10 20:00 | NUR ---
Patient's Plan of Care was discussed and reviewed with GUIDE EXCURSION: HESHAM GRUBBS LVN.
--- NOTE | 2019-02-10 21:00 | NUR ---
STILL VERY DROWSY, OPENS EYES BUT CONTINUED SLEEPING. WILL GIVE MEDICATIONS WHEN FULLY AWAKE. BP -113/59, LOPRESSOR NOT GIVEN.
--- NOTE | 2019-02-10 21:59 | NUR ---
INCONTINENT, CLEANSED AND BEDDING CHANGED. WOKE UP ALLOWED NURSES TO CLEAN HER.
--- NOTE | 2019-02-10 22:51 | NUR ---
ABLE TO TAKE HER NIGHT MEDICATIONS AND MAKE EAT HER UNEATEN DINNER BY SPOON PUT IN HER MOUTH.
--- NOTE | 2019-02-10 22:52 | NUR ---
UNABLE TO GIVE HEPARIN, PATIENT STARTING TO BE AGITATED, UNCOOPERATIVE.
--- NOTE | 2019-02-10 22:57 | NUR ---
STARTED BANGING HER HEAD AT THE HEADBOARD, PULLED OUT TELE BOX AND THROW ON THE FLOOR, BITE HER GOWN AND TOOK IT OFF AND DIAPER. REORIENTED TO HOSPITAL SETTING, UNABLE TO COMPREHEND, APHASIC.
--- NOTE | 2019-02-10 23:05 | NUR ---
WENT BACK TO SLEEP.
[2019-02-11] VITALS: BP 101/58
--- NOTE | 2019-02-11 | NUR ---
SLEEPING COMFORTABLY IN BED.
--- NOTE | 2019-02-11 02:00 | NUR ---
STILL SLEEPING COMFORTABLY.
[2019-02-11 04:00] VITALS: BP 114/75
--- NOTE | 2019-02-11 04:00 | NUR ---
AWAKE, RESTLESS. BANGED HEAD IN THE SIDE RAILS, TOOK OF TELE MONITOR BOX, GOWN AND UNDERWEAR. BITES HERSELF, BP CUFF AND PILLOW. SLIDE HERSELF DOWN TO THE FLOOR. PUT BACK IN BED WITH HELP OF BARRERA VAZQUEZ. HARD TO CONTROL, DOES NOT LISTENED TO INSTRUCTIONS.
[2019-02-11] MEDS: LORazepam 2 MG/ML VIAL IM/IVP PRN ×2 (04:13→09:17)
--- NOTE | 2019-02-11 04:13 | NUR ---
MEDICATED WITH ATIVAN 2 MG IVP BY FOOD MIXER ASSEMBLER
--- NOTE | 2019-02-11 04:43 | NUR ---
STILL AWAKE, RESTLESS. PULLING EVERYTHING SHE CAN REACH, BITING PILLOW CASES AND GOWN.
--- NOTE | 2019-02-11 05:10 | NUR ---
NO MORE RESTLESSNESS, ABLE TO SLEEP.
[2019-02-11] MEDS ORDERED: LEVOTHYROXINE 0.112 MG TAB PO SCH (06:30)
--- NOTE | 2019-02-11 07:15 | NUR ---
STILL SLEEPING COMFORTABLY IN BED, NEW SITTER MONITORING PATIENT. ENDORSED TO AM NURSE FOR CONTINUITY OF CARE.
--- NOTE | 2019-02-11 07:16 | NUR ---
RECEIVED ENDORSEMENT FROM COMMERCIAL SALES DIRECTOR NURSEHESHAM. PATIENT IS AAOX1, NONVERBAL. RESPIRATIONS ARE EVEN AND UNLABORED ON ROOM AIR. FLACC 0. RIGHT FOOT 22G IV INTACT AND SL. PATIENT IS OFF TELE, PER COMMERCIAL SALES DIRECTOR PATIENT BITES TELE CABLES. PLAN OF CARE WAS REVIEWED WITH PATIENT, PATIENT UNABLE TO VERBALIZE UNDERSTANDING. SAFETY MEASURES IN BLANK, SITTER AT BEDSIDE.
--- NOTE | 2019-02-11 07:40 | NUR ---
PUT HEART MONITOR BACK ON PATIENT. FLACC OF 0. SITTER AT BEDSIDE, NO OTHER NEEDS AT THIS TIME.
[2019-02-11 08:00] VITALS: BP 115/67
[2019-02-11] MEDS: levETIRAcetam 500 MG TAB PO SCH (08:40)
[2019-02-11] MEDS: GABAPENTIN 100 MG CAP PO SCH ×2 (08:40→13:00)
[2019-02-11] MEDS: QUEtiapine FUMARATE 100 MG TAB PO SCH (08:40)
[2019-02-11] MEDS: SERTRALINE 50 MG TAB PO SCH (08:41)
[2019-02-11] MEDS: HALOPERIDOL 5 MG TAB PO SCH (08:41)
[2019-02-11] MEDS: POLYETHYLENE GLYCOL 17 GM/PKT PO SCH (08:43)
[2019-02-11] MEDS: DIVALPROEX 250 MG TABEC PO SCH (08:43)
[2019-02-11] MEDS: DOCUSATE SODIUM 250 MG GELCAP PO SCH (08:43)
[2019-02-11] MEDS: ZIPRASIDONE 20 MG CAP PO SCH (08:46)
--- NOTE | 2019-02-11 08:47 | NUR ---
ADMINISTERED SCHEDULED MEDICATION. PO MEDICATIONS GIVEN WITH APPLESAUCE. PATIENT TOLERATED WELL. NO OTHER NEEDS AT THIS TIME, WILL CONTINUE TO MONITOR.
[2019-02-11] MEDS: METOPROLOL 25 MG TAB PO SCH (08:55)
--- NOTE | 2019-02-11 08:55 | NUR ---
DID NOT ADMINISTERED BLOOD PRESSURE MEDICATION. PATIENTS BP IS WNL. NO OTHER NEEDS AT THIS TIME, WILL CONTINUE TO MONITOR. Addendum: 02/11/19 at 1343 by Brittanie Damon RN BP 115/67, P 87
[2019-02-11] MEDS ORDERED: MAGNESIUM OXIDE 400 MG TAB PO SCH (09:00)
--- NOTE | 2019-02-11 09:17 | NUR ---
PATIENT BITING SHEETS AND BANGING HEAD ON HEADBOARD. ADMINISTERED ATIVAN PRN IVP.
[2019-02-11] MEDS ORDERED: LEVO0.118 PO (10:06)
--- NOTE | 2019-02-11 10:25 | NUR ---
SPOKE WITH PATIENT CAREGIVER, KIM. KIM TO TAKE PATIENT UPON DISCHARGE. KIM STATED HE WILL CALENDER INSPECTOR PATIENT AROUND 1230.
--- NOTE | 2019-02-11 10:36 | NUR ---
PATIENT SLEEPING. VISIBLE RISE AND FALL OF CHEST. NO OTHER NEEDS AT THIS TIME, WILL CONTINUE TO MONITOR.
[2019-02-11 12:00] VITALS: BP 96/50
--- NOTE | 2019-02-11 12:22 | NUR ---
PATIENT SLEEPING. VISIBLE RISE AND FALL OF CHEST. NO OTHER NEEDS AT THIS TIME, WILL CONTINUE TO MONITOR.
--- NOTE | 2019-02-11 13:01 | NUR ---
PATIENT IS SLEEPING, DID NOT ADMINISTER SCHEDULED MEDICATION.
--- NOTE | 2019-02-11 13:47 | NUR ---
PATIENT SLEEPING. VISIBLE RISE AND FALL OF CHEST. FLACC 0. NO OTHER NEEDS AT THIS TIME, WILL CONTINUE TO MONITOR.
--- NOTE | 2019-02-11 14:50 | NUR ---
DISCHARGE INSTRUCTIONS WERE GIVEN BUT PATIENT UNABLE TO VERBALIZE UNDERSTANDING. IV WAS REMOVED, CANNULA INTACT WITH MINIMAL BLEEDING. WOUND PHOTOS WERE TAKEN. CAREGIVER KIM PICKED UP PATIENT. ALL BELONGINGS LEFT WITH PATIENT. ESCORTED PATIENT OFF UNIT VIA WHEELCHAIR. PATIENT TO GO TO BOARD AND CARE. ID BAND WAS REMOVED. PATIENT IS STABLE AT THIS TIME.
== END 2019-02-11 14:45 | DRG 441 ==
LOC: MED 17:47 → MTU 02-07 01:18
PROVIDERS: ADMIT General Practice; ATTEND General Practice
DX: K72.90 Hepatic failure, unspecified without coma (principal); G93.41 Metabolic encephalopathy; N17.0 Acute kidney failure with tubular necrosis; E44.0 Moderate protein-calorie malnutrition; G80.9 Cerebral palsy, unspecified; F29 Unspecified psychosis not due to a substance or known physiological condition; R82.4 Acetonuria; E86.0 Dehydration; G40.909 Epilepsy, unspecified, not intractable, without status epilepticus; I10 Essential (primary) hypertension; E03.9 Hypothyroidism, unspecified; K59.00 Constipation, unspecified; S81.812A Laceration without foreign body, left lower leg, initial encounter; S81.811A Laceration without foreign body, right lower leg, initial encounter; X58.XXXA Exposure to other specified factors, initial encounter; S91.119A Laceration without foreign body of unspecified toe without damage to nail, initial encounter; E83.42 Hypomagnesemia; S61.412A Laceration without foreign body of left hand, initial encounter; S61.411A Laceration without foreign body of right hand, initial encounter; Z68.25 Body mass index [BMI] 25.0-25.9, adult; Z88.6 Allergy status to analgesic agent; Z88.8 Allergy status to other drugs, medicaments and biological substances; Y93.89 Activity, other specified; Y92.89 Other specified places as the place of occurrence of the external cause; Y99.8 Other external cause status
CPT/HCPCS: 36415; 71045; 80048; 80053; 80305; 81001; 81025; 82140; 82150; 83036; 83690; 83735; 83880; 84100; 84134; 84436; 84443; 84484; 85025; 85610; 85730; 87081; 92526; 92610; 93005; 96372; 99285; C1758; G0480; G0482; J1630; J1644; J1953; J2060; J3475; J3486; J3490; J7030